=== PATIENT | male | born 1960 | race Caucasian/White ===

== ENCOUNTER 2017-06-07 13:26 | Emergency (ER) | payer OTHER ==
[~2017-06-07] VITALS: Ht 165.1 cm; Wt 72.9 kg
[~2017-06-07 13:26] MED LIST: NOHOMEMEDS
[2017-06-07] MEDS ORDERED: ROBITUSSIN NIG237 ML PO (16:40)
[2017-06-07] MEDS ORDERED: TESSALON200 MG PO (16:40)
[2017-06-07] MEDS ORDERED: PROAIR HFA8.5 GM IH (16:40)
[2017-06-07 16:55] VITALS: BP 137/87
== END 2017-06-07 16:56 | disposition home or self-care (01) ==
LOC: EME 13:26
DX: J10.1 Influenza due to other identified influenza virus with other respiratory manifestations (principal); F17.210 Nicotine dependence, cigarettes, uncomplicated; Z71.6 Tobacco abuse counseling
CPT/HCPCS: 71046; 87502; 94640; 99281; 99284; J1885